=== PATIENT | male | born 1960 ===

== ENCOUNTER 2018-02-11 15:11 | Emergency (ER) | payer MEDICAID ==
[2018-02-11 15:11] VITALS: BMI 24.3
[2018-02-11 15:23] VITALS: BP 166/112; PULSE 88; RESP 20; TEMP 97.4; O2SAT 100
== END 2018-02-11 15:24 | disposition left against medical advice (07) ==
LOC: C.ER 15:11
DX: Z02.89 Encounter for other administrative examinations (principal); Z76.0 Encounter for issue of repeat prescription

== ENCOUNTER 2018-03-26 08:24 | Emergency (ER) | payer MEDICAID ==
[2018-03-26 08:36] VITALS: BMI 25.8
[2018-03-26 08:39] VITALS: BP 148/83; PULSE 84; RESP 18; TEMP 97.4; O2SAT 98
[2018-03-26] MEDS ORDERED: Sodium Chloride 0.9% 500 ML IV STA (08:51)
[2018-03-26] MEDS ORDERED: Iohexol 240 (50 ml) PO STA (08:51)
[2018-03-26] MEDS ORDERED: Iohexol 240 (50 ml) ONE (09:15)
[2018-03-26] MEDS ORDERED: Sodium Chloride 0.9% 500 ML IV ONE (09:18)
[2018-03-26 09:21] LABS: BASO # 0.1 K/uL (0.0-0.2); BASO % 1.1 % (0.0-2.0); EOS # 0.2 K/uL (0.0-0.7); EOS % 2.1 % (0.0-4.0); HEMOGLOBIN 15.6 g/dL (12.0-18.0); LYMPH # 1.9 K/uL (1.0-4.3); LYMPH % 18.1 % (20.0-40.0); MEAN CELL VOLUME 83.1 fL (80.0-94.0); MEAN CORPUSCULAR HEMOGLOBIN 29.2 pg (27.0-31.0); MEAN CORPUSCULAR HGB CONC 35.1 g/dL (33.0-37.0); MEAN PLATELET VOLUME 8.5 fL (7.2-11.7); MONO # 0.6 K/uL (0.0-0.8); MONO % 5.6 % (0.0-10.0); NEUT # 7.8 K/uL (1.8-7.0); NEUT % 73.1 % (50.0-75.0); RBC 5.33 Mil/uL (4.40-5.90); RED CELL DISTRIBUTION WIDTH 14.7 % (11.5-14.5); WHITE BLOOD COUNT 10.6 K/uL (4.8-10.8)
[2018-03-26 09:29] LABS: PROTHROMBIN TIME 11.9 SECONDS (9.7-12.2)
[2018-03-26 09:32] LABS: ALBUMIN 3.6 g/dL (3.5-5.0); ALT/SGPT 27 U/L (21-72); AST/SGOT 26 U/L (17-59); BLOOD UREA NITROGEN 17 mg/dL (9-20); CALCIUM 8.6 mg/dl (8.6-10.4); GFR AFRICAN-AMERICAN > 60; GFR NON-AFRICAN AMERICAN > 60; LIPASE 182 U/L (23-300)
[2018-03-26 09:43] LABS: URINE BILIRUBIN NEGATIVE (NEGATIVE); URINE BLOOD NEGATIVE (NEGATIVE); URINE CLARITY Clear (Clear); URINE COLOR Colorless (YELLOW); URINE GLUCOSE (UA) NORMAL (Normal); URINE LEUKOCYTE ESTERASE NEG Leu/uL (Negative); URINE PROTEIN NEGATIVE (NEGATIVE); URINE UROBILINOGEN NORMAL mg/dL (0.2-1.0)
[2018-03-26] MEDS ORDERED: Iodixanol 320 MG/ML 100 ML BOTTLE IV ONE (10:36)
--- NOTE | 2018-03-26 10:53 | C.PDOC ---
History Of Present Illness 57 y/o male presents to the ER complaining of a lump to the left groin region which has been present for about 1 month. Patient states that he went to his PMD who advised him to see a surgeon. He reports that he has been trying to make an appointment but he is having trouble getting an appointment at an earlier time. Therefore, he decided to visit the ER because he would like to have surgery done. Of note, patient is well known to [facility] because he has visited the ER multiple times for ETOH intoxication. He is also homeless and he states that he is currently staying with his friend. Chief Complaint (Nursing): Abdominal Pain History Per: Patient History/Exam Limitations: no limitations Onset/Duration Of Symptoms: Days Current Symptoms Are (Timing): Still Present Severity: Moderate Associated Symptoms: denies: Fever, Chills Past Medical History Reviewed: Historical Data, Nursing Documentation, Vital Signs Vital Signs: Last Vital Signs Temp 97.4 F L 03/26/18 11:04 Pulse 84 03/26/18 11:04 Resp 18 03/26/18 11:04 BP 148/83 03/26/18 11:04 Pulse Ox 98 03/26/18 19:39 - Medical History PMH: Anxiety, Asthma, COPD, Depression, Diabetes, Emphysema, HTN, Hypercholesterolemia, Pneumonia Surgical History: No Surg Hx Family History: States: No Known Family Hx - Social History Hx Tobacco Use: Yes Hx Alcohol Use: Yes Hx Substance Use: No - Immunization History Hx Tetanus Toxoid Vaccination: Yes Hx Influenza Vaccination: Yes (2018) Hx Pneumococcal Vaccination: Yes Review Of Systems Except As Marked, All Systems Reviewed And Found Negative. Constitutional: Negative for: Fever, Chills Skin: Positive for: Other (lump to left groin region) Physical Exam - Physical Exam Appears: Non-toxic, No Acute Distress Skin: Normal Color, Warm Head: Atraumatic, Normacephalic Eye(s): bilateral: Normal Inspection Nose: Normal Oral Mucosa: Moist Neck: Supple Chest: Symmetrical Cardiovascular: Rhythm Regular Respiratory: Normal Breath Sounds, No Rales, No Rhonchi, No Wheezing Gastrointestinal/Abdominal: Soft, No Tenderness, Hernia (left-sided inguinal hernia, mildly tender to palpation, non-erythematous, non-incarcerated, partially reducible) Extremity: Normal ROM Neurological/Psych: Oriented x3, Normal Speech ED Course And Treatment - Laboratory Results Result Diagrams: 03/26/18 09:14 03/26/18 09:14 O2 Sat by Pulse Oximetry: 98 (RA) Pulse Ox Interpretation: Normal Progress Note: Labs, UA, and CT-Abd & Pelv. were ordered. Surgeon was also supposed to be consulted. However, patient informed the nurse that he wants his IV Line removed and he would like to leave. He refused to sign the AMA form. He has been informed about the risks of leaving AMA. Patient sts he wants to go to [place] and get a whole evaluation there. Disposition - Disposition Disposition: AGAINST MEDICAL ADVICE Disposition Time: 10:52 Condition: FAIR Forms: [email or web address] (Grenadian) - Clinical Impression Clinical Impression: Abdominal pain, Inguinal hernia - PA / TAPE LIBRARIAN / Resident Statement MD/DO has reviewed & agrees with the documentation as recorded. - Scribe Statement The provider has reviewed the documentation as recorded by the Jazibe Jan Arellano Provider Attestation All medical record entries made by the Scribe were at my direction and personally dictated by me. I have reviewed the chart and agree that the record accurately reflects my personal performance of the history, physical exam, medical decision making, and the department course for this patient. I have also personally directed, reviewed, and agree with the discharge instructions and disposition.
== END 2018-03-26 11:02 | disposition left against medical advice (07) ==
LOC: C.ER 08:24
DX: K40.90 Unilateral inguinal hernia, without obstruction or gangrene, not specified as recurrent (principal); R10.9 Unspecified abdominal pain; I10 Essential (primary) hypertension; E11.9 Type 2 diabetes mellitus without complications; E78.00 Pure hypercholesterolemia, unspecified; F17.210 Nicotine dependence, cigarettes, uncomplicated
CPT/HCPCS: 80053; 81001; 83690; 85025; 85610; 85730; 99284; J7040; Q9966; Q9967

== ENCOUNTER 2018-07-27 11:56 | Emergency (ER) | payer MEDICAID, OTHER ==
[2018-07-27 11:57] VITALS: BMI 25.8
[2018-07-27 12:05] VITALS: BP 115/77; PULSE 77; RESP 18; TEMP 97.4; O2SAT 100
--- NOTE | 2018-07-27 12:39 | RAD ---
Date of service: 07/27/2018 PROCEDURE: Right small finger radiographs. HISTORY: r/o distal finger fx COMPARISON: None. TECHNIQUE: AP radiograph of the right hand, as well as spot oblique and lateral images of small finger were obtained. FINDINGS: RIGHT SMALL FINGER: Questionable base of 5th distal phalanx intraarticular fracture. JOINTS: Normal. SOFT TISSUES: Fifth digit soft tissue swelling. OTHER FINDINGS: None. IMPRESSION: Questionable base of 5th distal phalanx intraarticular fracture.
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
== END 2018-07-27 13:02 | disposition home or self-care (01) ==
LOC: C.ER 11:56
DX: S62.636A Displaced fracture of distal phalanx of right little finger, initial encounter for closed fracture (principal); Y09 Assault by unspecified means

== ENCOUNTER 2018-08-31 17:07 | Emergency (ER) | payer OTHER ==
[2018-08-31 17:08] VITALS: BMI 25.8
[2018-08-31 17:42] VITALS: BP 144/92; PULSE 86; RESP 16; TEMP 97.8; O2SAT 100
--- NOTE | 2018-08-31 18:58 | C.PDOC ---
History Of Present Illness 57 y/o male presents to ED with c/o left inguinal hernia for 8 months. Patient states he is able to push hernia back in and denies fever,chills, abdominal pain, nausea, vomiting, dysuria or any other complaints at this time. Time Seen by Provider: 08/31/18 17:44 Chief Complaint (Nursing): Groin Pain History Per: Patient History/Exam Limitations: no limitations Onset/Duration Of Symptoms: Days Current Symptoms Are (Timing): Still Present Past Medical History Reviewed: Historical Data, Nursing Documentation, Vital Signs Vital Signs: Last Vital Signs Temp 97.8 F 08/31/18 17:40 Pulse 86 08/31/18 17:40 Resp 16 08/31/18 17:40 BP 144/92 H 08/31/18 17:40 Pulse Ox 100 08/31/18 17:40 - Medical History PMH: Anxiety, Asthma, COPD, Depression, Diabetes, Emphysema, HTN, Hypercholesterolemia, Pneumonia Surgical History: No Surg Hx Family History: States: No Known Family Hx - Social History Hx Tobacco Use: Yes Hx Alcohol Use: Yes Hx Substance Use: No - Immunization History Hx Tetanus Toxoid Vaccination: Yes Hx Influenza Vaccination: Yes (2018) Hx Pneumococcal Vaccination: Yes Review Of Systems Constitutional: Negative for: Fever, Chills Gastrointestinal: Negative for: Nausea, Vomiting, Abdominal Pain Genitourinary: Positive for: Other (inguinal hernia). Negative for: Dysuria, Hematuria Skin: Negative for: Rash Physical Exam - Physical Exam Appears: Non-toxic, No Acute Distress Skin: Warm, Dry, No Rash Head: Atraumatic, Normacephalic Eye(s): bilateral: Normal Inspection Oral Mucosa: Moist Cardiovascular: Rhythm Regular Respiratory: Normal Breath Sounds, No Rales, No Rhonchi, No Wheezing Gastrointestinal/Abdominal: Soft, No Tenderness, No Guarding, No Rebound Back: No CVA Tenderness Male Genital: Other Neurological/Psych: Oriented x3, Normal Speech, Normal Cognition ED Course And Treatment O2 Sat by Pulse Oximetry: 100 (RA) Pulse Ox Interpretation: Normal Medical Decision Making Medical Decision Making: pt with reducible swelling in left inguinal region, minimally tender. no redness. swelling or warmth. abdomen soft, nd, nt. d/c home with outpatient surgical appt. give pt [employer] to help getting appt. Disposition Counseled Patient/Family Regarding: Diagnosis, Need For Followup - Disposition Referrals: at [facility] [Outside] [facility] [Outside] Cristobal Richey MD [Staff Provider] - Disposition Time: 18:58 Additional Instructions: Please call [employer] for help finding a general surgeon to follow up with as an outpatient, Call Dr Richey for an appt. Return to ER for severe pain, unable to reduce hernia or any other concerning symptoms. Instructions: Inguinal and Femoral (Groin) Hernias Forms: [employer] (Citizen Of [place]), General Discharge Instructions - Clinical Impression Clinical Impression: Hernia, inguinal, left - PA / MEDICAL EDUCATION COORDINATOR / Resident Statement MD/DO has reviewed & agrees with the documentation as recorded. - Scribe Statement The provider has reviewed the documentation as recorded by the Prisca Garzon All medical record entries made by the Prisca were at my direction and personally dictated by me. I have reviewed the chart and agree that the record accurately reflects my personal performance of the history, physical exam, medical decision making, and the department course for this patient. I have also personally directed, reviewed, and agree with the discharge instructions and disposition.
--- NOTE | 2018-08-31 18:58 | C.PDOC ---
Time Seen by Provider: 08/31/18 17:44 Chief Complaint (Nursing): Groin Pain Past Medical History Vital Signs: Last Vital Signs Temp 97.8 F 08/31/18 17:40 Pulse 86 08/31/18 17:40 Resp 16 08/31/18 17:40 BP 144/92 H 08/31/18 17:40 Pulse Ox 100 08/31/18 18:58 - Medical History PMH: Anxiety, Asthma, COPD, Depression, Diabetes, Emphysema, HTN, Hypercholesterolemia, Pneumonia Family History: States: Unknown Family Hx - Social History Hx Tobacco Use: Yes Hx Alcohol Use: Yes Hx Substance Use: No - Immunization History Hx Tetanus Toxoid Vaccination: Yes Hx Influenza Vaccination: Yes (2018) Hx Pneumococcal Vaccination: Yes ED Course And Treatment O2 Sat by Pulse Oximetry: 100 Disposition - Disposition Forms: [employer] (Persian)
== END 2018-08-31 19:23 | disposition home or self-care (01) ==
LOC: C.ER 17:07
DX: K40.90 Unilateral inguinal hernia, without obstruction or gangrene, not specified as recurrent (principal)

== ENCOUNTER 2019-01-28 05:03 | Emergency (ER) | payer OTHER ==
[2019-01-28 05:04] VITALS: BMI 25.8
--- NOTE | 2019-01-28 06:47 | C.PDOC ---
History Of Present Illness 58 year old male presents to the ED with complaints of bilateral foot pain. Patient states that he is homeless and has pain in his feet due to walking all day long. Patient offers no other complaints at this time. <Cate Rosas - Last Filed: 01/28/19 07:01> History Per: Patient History/Exam Limitations: no limitations Onset/Duration Of Symptoms: Hrs Current Symptoms Are (Timing): Still Present Suicide/Self Injury Attempted (Context): None Modifying Factor(s): Alcohol Associated Symptoms: Other (b/l foot pain). denies: Suicidal Thoughts, Suicidal Plan <Cate Rosas - Last Filed: 01/28/19 07:01> <Steffen Barakat V - Last Filed: 01/28/19 08:36> Time Seen by Provider: 01/28/19 05:11 Chief Complaint (Nursing): Lower Extremity Problem/Injury Past Medical History Reviewed: Historical Data, Nursing Documentation, Vital Signs Vital Signs: Last Vital Signs Temp 97.4 F L 01/28/19 05:10 Pulse 82 01/28/19 05:10 Resp 16 01/28/19 05:10 BP 108/74 01/28/19 05:10 Pulse Ox 97 01/28/19 05:10 - Medical History PMH: Anxiety, Asthma, COPD, Depression, Diabetes, Emphysema, HTN, Hypercholesterolemia, Pneumonia Surgical History: No Surg Hx Family History: States: No Known Family Hx - Social History Hx Tobacco Use: Yes Hx Alcohol Use: Yes Hx Substance Use: No - Immunization History Hx Tetanus Toxoid Vaccination: Yes Hx Influenza Vaccination: Yes (2018) Hx Pneumococcal Vaccination: Yes <Cate Rosas - Last Filed: 01/28/19 07:01> Vital Signs: Last Vital Signs Temp 98.7 F 01/28/19 07:20 Pulse 82 01/28/19 07:20 Resp 18 01/28/19 07:20 BP 128/82 01/28/19 07:20 Pulse Ox 96 01/28/19 07:20 <Steffen Barakat V - Last Filed: 01/28/19 08:36> Review Of Systems Except As Marked, All Systems Reviewed And Found Negative. Constitutional: Negative for: Fever, Chills Cardiovascular: Negative for: Chest Pain Respiratory: Negative for: Cough, Shortness of Breath Gastrointestinal: Negative for: Nausea, Vomiting, Abdominal Pain, Diarrhea Musculoskeletal: Positive for: Foot Pain (bilateral) <Cate Rosas - Last Filed: 01/28/19 07:01> Physical Exam - Physical Exam Appears: Non-toxic, No Acute Distress Skin: Normal Color, Warm, Dry Head: Atraumatic, Normacephalic Eye(s): bilateral: Normal Inspection, PERRL, EOMI Nose: Normal Oral Mucosa: Moist, Other (alcohol on breath) Neck: Normal, Supple Chest: Symmetrical, No Tenderness Cardiovascular: Rhythm Regular, No Murmur Respiratory: Normal Breath Sounds, No Rales, No Rhonchi, No Wheezing Gastrointestinal/Abdominal: Soft, No Tenderness Extremity: Normal ROM, No Tenderness, No Pedal Edema, No Swelling Neurological/Psych: Oriented x3, Normal Speech, Normal Cognition <Cate Rosas - Last Filed: 01/28/19 07:01> ED Course And Treatment O2 Sat by Pulse Oximetry: 97 (RA) Pulse Ox Interpretation: Normal Progress Note: Plan: Glucose POC <Cate Rosas - Last Filed: 01/28/19 07:01> Disposition - Disposition Disposition Time: 07:03 <Cate Rosas - Last Filed: 01/28/19 07:01> Counseled Patient/Family Regarding: Diagnosis - Disposition Disposition Time: 08:35 <Steffen Barakat V - Last Filed: 01/28/19 08:36> - Disposition Referrals: [facility] [Outside] Disposition: HOME/ ROUTINE Condition: STABLE Additional Instructions: shelters list given Prescriptions: Ibuprofen [Motrin] 600 mg PO TID #20 tab Instructions: Alcohol Use - When Is Drinking a Problem? 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 - Scribe Statement The provider has reviewed the documentation as recorded by the Scribe (Marco Castaneda) All medical record entries made by the Scribe were at my direction and personally dictated by me. I have reviewed the chart and agree that the record accurately reflects my personal performance of the history, physical exam, medical decision making, and the department course for this patient. I have also personally directed, reviewed, and agree with the discharge instructions and disposition. <Cate Rosas - Last Filed: 01/28/19 07:01> Physician Patient Turnover Patient Signed Over To: Steffen Barakat V Handoff Comments: re-eval, dispo <Cate Rosas - Last Filed: 01/28/19 07:01> Addendum Addendum: 01/28/19 08:32 Patient is awake, alert oriented x3, stady gait, sober. Pulses to both lower extrimities normal, no deformity, patient denies trauma. <Steffen Barakat V - Last Filed: 01/28/19 08:36>
[2019-01-28 07:46] VITALS: RESP 18
[2019-01-28 10:00] VITALS: BP 143/90; PULSE 89; TEMP 98.6; O2SAT 95
== END 2019-01-28 10:00 | disposition home or self-care (01) ==
LOC: C.ER 05:03
DX: F10.129 Alcohol abuse with intoxication, unspecified (principal); Y90.9 Presence of alcohol in blood, level not specified; Z59.0 Homelessness